=== PATIENT | female | born 1980 | race Caucasian/White ===

== ENCOUNTER 2017-01-26 20:19 | Emergency (ER) | payer OTHER ==
[~2017-01-26] VITALS: Ht 157.5 cm; Wt 58.2 kg
[~2017-01-26 20:19] MED LIST: Ambien PO; BUSPAR15 MG PO; Buspar PO; CIPRO500 MG PO; HIV MED; MACROBID100 MG PO; MIRTAZAPINE30 MG PO; MOTRIN800 MG PO; NAPROXEN500 MG PO; NEURONTIN100 MG PO; NORCO 5/3251 TABLET PO; NORVIR; NORVIR100 MG; NORVIR100 MG PO; OXCARBAZEPINE300 MG PO; PEN-VEE K,VEET500 MG PO; PREZISTA400 MG; PREZISTA600 MG PO; PREZISTA75 MG PO; Remeron PO; TRAMADOL HCL50 MG PO; TRAZODONE HCL50 MG PO; TRILEPTAL300 MG PO; TRUVADA1 TABLET; VICODIN,LORT1 TABLET PO; [UNRECOGNIZED DRUG - OTHER]; norvir; prezista
[2017-01-27 00:12] LABS: HEMATOCRIT 43.1 % (36.0-46.0); MCH 24.9 PG (29.0-34.0); MCHC 31.1 G/DL (30.0-36.0); MCV 80.1 FL (83-99); PLATELET COUNT 597 K/uL (156-360); RBC DIS.WIDTH-CV 18.1 % (11.8-14.6); RBC DIS.WIDTH-SD 52.4 % (39-53); RED BLOOD COUNT 5.38 M/uL (3.80-5.20); WHITE BLOOD COUNT 10.5 K/uL (4.1-10.2)
[2017-01-27 00:25] LABS: CHLORIDE 100 mEq/L (99-109); POTASSIUM 3.3 mEq/L (3.7-5.4); SODIUM 137 mEq/L (136-147)
[2017-01-27 00:27] LABS: GLUCOSE 106 mg/dL (70-99)
[2017-01-27 00:28] LABS: ANION GAP 8 MEQ/L (2-14)
[2017-01-27 00:30] LABS: SERUM ETHYL ALCOHOL < 10 mg/dL
[2017-01-27 00:31] LABS: GFR ESTIMATE (CALCULATED) > 59 mL/min/
[2017-01-27 00:32] LABS: UREA NITROGEN (BUN) 11 mg/dL (9-23)
[2017-01-27 00:42] LABS: QUANTITATIVE HCG < 4.0 MIU/ML
[2017-01-27 04:36] LABS: AMPHETAMINE NEGATIVE (500 ng/mL); BARBITURATES NEGATIVE (200 ng/mL); BENZODIAZEPINES NEGATIVE (150 ng/mL); COCAINE PRESUMPTIVE POSITIVE (150 ng/mL); INTERNAL CONTROLS VALID? YES; METHADONE NEGATIVE (200 ng/mL); METHAMPHETAMINE PRESUMPTIVE POSITIVE (500 ng/mL); OPIATES (MORPHINE) PRESUMPTIVE POSITIVE (100 ng/mL); OXYCODONE NEGATIVE (100 ng/mL); PHENCYCLIDINE PRESUMPTIVE POSITIVE (25 ng/mL); PROPOXYPHENE NEGATIVE (300 ng/mL); THC CANNABINOIDS PRESUMPTIVE POSITIVE (50 ng/mL); TRICYCLIC ANTIDEPRESSANTS NEGATIVE (300 ng/mL)
[2017-01-27 04:37] LABS: ADD MEDTOX COMMENT Y
[2017-01-27 16:14] VITALS: BP 118/81
== END 2017-01-27 16:17 ==
LOC: EME 20:19
DX: F33.9 Major depressive disorder, recurrent, unspecified (principal); R45.851 Suicidal ideations; L03.115 Cellulitis of right lower limb; F11.20 Opioid dependence, uncomplicated; F12.90 Cannabis use, unspecified, uncomplicated; F17.200 Nicotine dependence, unspecified, uncomplicated; Z21 Asymptomatic human immunodeficiency virus [HIV] infection status
CPT/HCPCS: 73610; 80048; 84702; 84999; 85027; 90837; 99281; 99285; G0480; J1885

== ENCOUNTER 2017-06-13 22:05 | Emergency (ER) | payer OTHER ==
[~2017-06-13] VITALS: Ht 157.5 cm; Wt 65.6 kg
[2017-06-13] MEDS ORDERED: NAPROSYN500 MG PO (23:49)
[2017-06-13 23:53] VITALS: BP 148/65
== END 2017-06-14 00:07 | disposition home or self-care (01) ==
LOC: EME 22:05
DX: M54.5 Low back pain (principal); F31.9 Bipolar disorder, unspecified; F41.9 Anxiety disorder, unspecified; Z88.2 Allergy status to sulfonamides; Z88.8 Allergy status to other drugs, medicaments and biological substances; F17.200 Nicotine dependence, unspecified, uncomplicated
CPT/HCPCS: 72220; 99281; 99284